=== PATIENT | male | born 1965 | race Caucasian/White ===

== ENCOUNTER 2017-02-09 16:59 | Emergency (ER) | payer OTHER ==
[2017-02-09 17:04] VITALS: BP 133/95; PULSE 88; RESP 20; TEMP 97.8; O2SAT 100
--- NOTE | 2017-02-09 17:13 | PD ---
Physical Exam Time Seen by Provider: 17:11 Narrative 51 y/o male with laceration to L lower leg sustained on hedge-trimmers. Currently bandaged. Vital signs reviewed. Seen at triage desk. Awaiting bed placement. Data Data Last Documented VS Vital Signs Date Time Temp Pulse Resp B/P Pulse Ox O2 Delivery O2 Flow Rate FiO2 02/09/17 17:04 97.8 88 20 133/95 100 Room Air [facility] Medical Record Reviewed: Yes Supervised Visit with VIRGIL: Malcom Arita Feb 09, 2017 17:13
--- NOTE | 2017-02-09 17:42 | PD ---
HPI . left leg laceration Chief Complaint: Laceration/Skin Injury Time Seen by Provider: 17:38 Travel History International Travel<30 days: No Contact w/Intl Traveler<30days: No Traveled to known affect area: No History of Present Illness HPI 51-year-old male who is up-to-date on his tetanus here with a left leg laceration. Patient was cutting some hedges when the hedger hit his left anterior silva. He now has a 4.57 m laceration to his left leg. Initially he said the bleeding was very hard to control, however now there is no further bleeding. He denies any other issues. He is accompanied by his significant other. [facility] Social History Tobacco Use: Yes Allergies-Medications (Allergen,Severity, Reaction): Coded Allergies: Penicillin (Verified Allergy, Severe, 02/09/17) Review of Systems General / Constitutional: No: Fever Eyes: No: Visual changes HENT: No: Headaches Cardiovascular: No: Chest Pain or Discomfort Respiratory: No: Shortness of Breath Gastrointestinal: No: Abdominal Pain Genitourinary: No: Dysuria Musculoskeletal: No: Pain Skin: Positive Other (left anterior silva laceration ), No Rash Neurologic: No: Weakness Psychiatric: No: Depression Endocrine: No: Polydipsia Hematologic/Lymphatic: No: Easy Bruising Physical Exam Narrative GENERAL: AAO x 3, no acute distress, Well-nourished, well-developed patient. SKIN: Warm and dry. No visible rashes or bruising. left anterior silva with 4.5 cm superficial laceration without any bone visible, no tendon, or vessel injury HEAD: Normocephalic and atraumatic. EYES: No scleral icterus. No injection or drainage. ENT: No nasal drainage noted. Mucous membranes pink. Airway patent. NECK: Supple, trachea midline. No JVD. CARDIOVASCULAR: Regular rate and rhythm without murmurs, gallops, or rubs. RESPIRATORY: Breath sounds equal bilaterally. No accessory muscle use. No rhonchi or rales. GASTROINTESTINAL: Abdomen soft, non-tender, nondistended. EXTREMITIES: No cyanosis or edema. all digits move normally. Patient able to dorsiflex and plantar flex normally. Rotation of ankle is normal. Knees been normally. BACK: No obvious deformity. NEURO: CN II-12 intact, manager metal strength normal b/l, UE and LE 5/5, no focal deficits PSYCH: AAO x 3, normal affect. Data Data Last Documented VS Vital Signs Date Time Temp Pulse Resp B/P Pulse Ox O2 Delivery O2 Flow Rate FiO2 02/09/17 17:04 97.8 88 20 133/95 100 Room Air Orders Tibia/Fibula (Ap/Lat) (02/09/17 17:42) Lidocaine 1% Inj (50 Ml) (Xylocaine 1% I (02/09/17 17:45) Lidocaine Pf 1% Inj (Xylocaine-Mpf 1% In (02/09/17 17:55) MDM Medical Decision Making Medical Screen Exam Complete: Yes Emergency Medical Condition: Yes Medical Record Reviewed: Yes Differential Diagnosis Left anterior silva laceration, less likely open fracture, less likely amputation Narrative Course 51-year-old male here with a superficial laceration to the left anterior silva. Patient gave verbal consent to repair. 9 yaneth were placed without incident. I recommend removal in 10-14 days. X-ray was ordered to rule out any type of bony abnormality although I suspect there will not be any acute injury. no retained FB or fracture seen: Discussed keeping area clean and signs of infection. Patient verbalized understanding of instructions, questions were answered, and thanked me for their care. I advised them if their condition worsens, please return to the nearest emergency room for further care. Diagnosis Primary Impression: Leg laceration Qualified Code: S81.812A - Leg laceration, left, initial encounter Patient Instructions: General Instructions Additional Instructions: Keep area clean and dry. Use gauze as we discussed and change 1-2 times a day. Watch for signs of infection: fever, redness, swelling, warmth, pus or drainage , red streaks around the cut, and increased pain from the area. If you received a tetanus shot, you may experience tenderness at the injection site. This is normal. 9 yaneth will need to be removed in 10-14 days. You can follow-up with us here in the emergency department or go to your primary care office. Med/Other Pt SpecificInfo: No Change to Meds Disposition: 01 DISCHARGE HOME Condition: Stable Chary Barrera Feb 09, 2017 17:42 Chary Barrera Feb 09, 2017 17:42
[2017-02-09] MEDS ORDERED: LIDOCAINE HCL 1% 50 ML VIAL INFIL ONE (17:45)
[2017-02-09] MEDS ORDERED: LIDOCAINE HCL 1% PF 30 ML VIAL ONE (17:55)
--- NOTE | 2017-02-09 18:53 | RADRPT ---
EXAM DATE/TIME: 02/09/2017 18:42 [facility] COMPARISON: No previous studies available for comparison. INDICATIONS : Laceration left mid lower leg, possible FB MEDICAL HISTORY : None. SURGICAL HISTORY : None. ENCOUNTER: Initial ACUITY: 1 day PAIN SCORE: 6/10 LOCATION: Left mid leg FINDINGS: There are skin yaneth identified anterior mid lower leg no radiopaque foreign bodies identified othe r than the skin yaneth. No fractures. CONCLUSION: No concerning retained foreign bodies that are visualized. Moises Paredes MD on February 09, 2017 at 18:51 Board Certified Radiologist. This report was verified electronically.
== END 2017-02-09 19:53 | disposition home or self-care (01) ==
LOC: NEPK 16:59
DX: S81.812A Laceration without foreign body, left lower leg, initial encounter (principal); W29.3XXA Contact with powered garden and outdoor hand tools and machinery, initial encounter; Y93.H2 Activity, gardening and landscaping
CPT/HCPCS: 12002; 73590